=== PATIENT | female | born 1940 | race Caucasian/White ===

== ENCOUNTER → 2016-12-23 11:23 | Outpatient (CLI) | payer MEDICARE, OTHER ==
[2015-05-12 08:35] VITALS: BMI 29.4
[~2016-12-23 11:23] MED LIST: AMBIEN10 MG PO; LOTREL 10/20 CA1 CAP PO; MELATONIN 3 MG1 TAB PO; NEXIUM40 MG PO
[2016-12-23 15:26] LABS: APPEARANCE CLEAR (CLEAR); BACTERIA FEW /hpf (NONE SEEN); BILIRUBIN NEGATIVE (NEGATIVE); COLOR YELLOW (YELLOW); EPITHELIAL CELLS 0-5 /hpf (0-5); GLUCOSE NEGATIVE (NEGATIVE); KETONE NEGATIVE (NEGATIVE); LEUKOCYTE ESTERASE 1+ (NEGATIVE); NITRITE NEGATIVE (NEGATIVE); PROTEIN NEGATIVE (NEGATIVE); RED CELLS - URINE NONE SEEN /hpf (0-5); SPECIFIC GRAVITY 1.005 (1.005-1.020); UROBILINOGEN NORMAL (NORMAL); WHITE CELLS - URINE 0-5 /hpf (0-5)
== END | disposition home or self-care (01) ==
LOC: D.LAB 11:23 → D.LABREF 11:23
PROVIDERS: Family Medicine
DX: R39.15 Urgency of urination (principal); N39.0 Urinary tract infection, site not specified

== ENCOUNTER → 2017-02-27 11:09 | Outpatient (CLI) | payer MEDICARE, OTHER ==
[2015-05-12 08:35] VITALS: BMI 29.4
== END | disposition home or self-care (01) ==
LOC: D.RAD 02-25 10:15
DX: M54.42 Lumbago with sciatica, left side (principal)

== ENCOUNTER → 2017-08-29 12:03 | Outpatient (CLI) | payer MEDICARE, OTHER ==
[2015-05-12 08:35] VITALS: BMI 29.4
== END | disposition home or self-care (01) ==
LOC: D.RAD 12:03
DX: R07.81 Pleurodynia (principal)

== ENCOUNTER → 2017-10-24 11:59 | Outpatient (CLI) | payer MEDICARE, OTHER ==
[2015-05-12 08:35] VITALS: BMI 29.4
[2017-10-24 12:24] LABS: BASOPHILS 0.2 % (0-2); EOSINOPHILS 0.9 % (0-7); HEMATOCRIT 43.5 % (36.0-48.0); HEMOGLOBIN 14.5 g/dL (12-16); IMMATURE GRANULOCYTES 0.4 % (0-5); LYMPHOCYTES 28.8 % (15-50); MCH 28.9 pg (26.0-34.0); MCHC 33.3 g/dL (31.0-37.0); MCV 86.8 fL (80.0-100.0); MEAN PLATELET VOLUME 10.1 fL (7.4-10.4); MONOCYTES 7.1 % (2-11); NEUTROPHILS 62.6 % (40-80); PLATELET COUNT 220 10x3/uL (130-400); RBC 5.01 10x6/uL (4.00-5.40); RDW 13.6 % (11.5-14.5); WBC 12.7 10x3/uL (4.8-10.8)
[2017-10-24 12:46] LABS: BILIRUBIN - TOTAL 0.49 mg/dL (0.2-1.3); CALCIUM 8.8 mg/dL (8.5-10.1); CHOL - HDL RATIO 2.7 ratio (2.3-4.1); CREATININE - SERUM 0.9 mg/dL (0.6-1.3); LDL-HDL RATIO 1.5 ratio (1.5-3.5); PROTEIN - SERUM 7.2 g/dL (6.4-8.2); THYROID STIMULATING HORMONE 2.34 uIU/mL (0.36-3.74)
== END | disposition home or self-care (01) ==
LOC: D.LAB 09:00
PROVIDERS: Family Medicine
DX: Z00.00 Encounter for general adult medical examination without abnormal findings (principal); I10 Essential (primary) hypertension; E78.4 Other hyperlipidemia

== ENCOUNTER → 2018-07-29 08:30 | Outpatient (CLI) | payer MEDICARE, OTHER ==
[2015-05-12 08:35] VITALS: BMI 29.4
[2018-07-29 09:01] LABS: BASOPHILS 0.3 % (0-2); EOSINOPHILS 1.1 % (0-7); HEMATOCRIT 41.2 % (36.0-48.0); IMMATURE GRANULOCYTES 0.3 % (0-5); LYMPHOCYTES 35.9 % (15-50); MCH 29.4 pg (26.0-34.0); MCV 86.4 fL (80.0-100.0); MEAN PLATELET VOLUME 10.3 fL (7.4-10.4); MONOCYTES 10.8 % (2-11); NEUTROPHILS 51.6 % (40-80); PLATELET COUNT 199 10x3/uL (130-400); RBC 4.77 10x6/uL (4.00-5.40); RDW 13.3 % (11.5-14.5); WBC 6.1 10x3/uL (4.8-10.8)
[2018-07-29 09:15] LABS: ALBUMIN 3.5 g/dL (3.4-5.0); ANION GAP 10.3 mmol/L (8-16); BILIRUBIN - TOTAL 0.62 mg/dL (0.2-1.3); CALCIUM 8.9 mg/dL (8.5-10.1); CHOL - HDL RATIO 2.7 ratio (2.3-4.1); CREATININE - SERUM 0.8 mg/dL (0.6-1.3); LDL-HDL RATIO 1.5 ratio (1.5-3.5); POTASSIUM - SERUM 4.3 mmol/L (3.5-5.1)
== END | disposition home or self-care (01) ==
LOC: D.RAD 08:30
PROVIDERS: Family Medicine
DX: M25.552 Pain in left hip (principal); M25.551 Pain in right hip; G47.00 Insomnia, unspecified; I10 Essential (primary) hypertension; M54.5 Low back pain

== ENCOUNTER → 2019-02-10 12:46 | Outpatient (CLI) | payer MEDICARE, OTHER ==
[2015-05-12 08:35] VITALS: BMI 29.4
== END | disposition home or self-care (01) ==
LOC: D.RAD 12:46
PROVIDERS: ATTEND Family Medicine
DX: M25.561 Pain in right knee (principal)

== ENCOUNTER → 2020-06-23 12:15 | Outpatient (CLI) | payer MEDICARE, OTHER ==
[2015-05-12 08:35] VITALS: BMI 29.4
[2020-06-23 13:24] LABS: BACTERIA FEW /hpf (NEGATIVE); BILIRUBIN NEGATIVE (NEGATIVE); EPITHELIAL CELLS 0-5 /hpf (0-5); GLUCOSE NEGATIVE (NEGATIVE); KETONE NEGATIVE (NEGATIVE); NITRITE NEGATIVE (NEGATIVE); RED CELLS - URINE 0-5 /hpf (0-5); UROBILINOGEN NORMAL (NORMAL)
== END | disposition home or self-care (01) ==
LOC: D.LAB 12:15
PROVIDERS: ATTEND Family Medicine
DX: N39.0 Urinary tract infection, site not specified (principal)